=== PATIENT | female | born 1950 | race Caucasian/White ===

== ENCOUNTER 2020-01-22 13:53 | Outpatient (CLI) | payer MEDICARE, SELFPAY ==
--- NOTE | ~2020-01-22 | CT_ITS ---
EXAMINATION: CT chest wo con DATE: 01/22/2020 14:09 INDICATION: Solitary pulmonary nodule TECHNIQUE: Computed tomography (CT) of the chest was performed without intravenous contrast. The dose -length product (DLP) was 121.11 mGy-cm. Automated exposure control and iterative reconstruction tech nique were employed. COMPARISON: None FINDINGS: Scarring is present in the lung apices. There is severe emphysema. A deformity of the right lateral chest wall is noted with associated subpleural scarring. There are a few scattered pulmonary nodules which measure up to 4 mm. No pleural effusion or pneumothorax is identified. No pathological ly enlarged thoracic lymph nodes are identified. The heart size is normal. There is calcified coronar y artery atherosclerosis. IMPRESSION: 1. Severe emphysema. 2. Scattered pulmonary nodules measuring up to 4 mm, likely old granulomatous disease. Consider CT fo llow-up in 12 months. Reviewed, dictated and finalized at location A. IMPRESSION: 1. Severe emphysema. 2. Scattered pulmonary nodules measuring up to 4 mm, likely old granulomatous d isease. Consider CT follow-up in 12 months.
== END 2020-01-22 13:54 ==
PROVIDERS: PCP Physician Assistant; Visit Provider Physician Assistant
DX: R91.1 Solitary pulmonary nodule (principal)
CPT/HCPCS: 71250

== ENCOUNTER 2020-12-27 10:47 | Emergency (ER) | payer MEDICARE, SELFPAY ==
--- NOTE | ~2020-12-27 | XR_ITS ---
EXAMINATION: XR chest 2V DATE: 12/27/2020 12:10 INDICATION: COPD presenting with cough and shortness of breath TECHNIQUE: PA and lateral views of the chest were obtained. COMPARISON: Chest CT dated 01/22/2020 FINDINGS: Hyperexpansion of lungs, flattening of the diaphragm and increased retrosternal clear space consisten t with emphysema better appreciated on prior CT. Biapical pleural-parenchymal scarring. Deformity of lateral right fifth and sixth ribs suggesting old fracture deformity with associated subpleural scarr ing. New focal airspace opacity in the right upper lung zone suspicious for pneumonia. More streaky l inear opacities at the bilateral lung bases which appears unchanged since prior CT likely representin g atelectasis/scarring. The cardiomediastinal silhouette is normal. IMPRESSION: 1. New airspace opacities in the right upper lung zone suspicious for pneumonia. 2. Emphysema with chronic scarring at the bilateral apices, bilateral lung bases and along a likely o ld right rib fracture deformities at the lateral right midlung. Reviewed, dictated and finalized at location A. IMPRESSION: 1. New airspace opacities in the right upper lung zone suspicious for pneumonia . 2. Emphysema with chronic scarring at the bilateral apices, bilateral lung base s and along a likely old right rib fracture deformities at the lateral right mi dlung.
--- NOTE | 2020-12-27 10:52 | ED.URI ---
HPI - URI/Sore Throat General Chief Complaint: Upper Respiratory Infection Stated Complaint: COPD/COUGH Time Seen by Provider: 12/27/20 11:50 Source: patient and RN notes reviewed Mode of arrival: ambulatory Limitations: no limitations History of Present Illness HPI Narrative: 70-year-old female with a history of COPD presents concern for cough, shortness of breath for approximately 3-1/2 weeks. She reports increased fatigue, chills, white frothy sputum. She denies intervention. She continues to smoke 1 pack of cigarettes per day. She has not been vaccinated for Covid. MD elicited complaint: cough Pertinent past history: COPD Related Data Home Medications Medication Instructions Recorded Confirmed B Complex-Vitamin B12 See Rx Instructions .ROUTE .COMPLEX 12/27/20 12/27/20 amlodipine 5 mg PO DAILY 12/27/20 12/27/20 aspirin [Adult Low Dose Aspirin] 81 mg PO DAILY 12/27/20 12/27/20 atorvastatin 40 mg PO DAILY 12/27/20 12/27/20 budesonide-formoterol [Symbicort] 2 puff INHALATION BID 12/27/20 12/27/20 cholecalciferol (vitamin D3) 25 mcg PO DAILY 12/27/20 12/27/20 [Vitamin D3] diclofenac sodium [Pennsaid] 2 pump TOPICAL BID 12/27/20 12/27/20 donepezil 10 mg PO DAILY 12/27/20 12/27/20 dorzolamide-timolol (PF) 1 drp OPHTHALMIC (EYE) BID 12/27/20 12/27/20 hydroxyzine pamoate 25 mg PO TID 12/27/20 12/27/20 latanoprost 1 drp EACH EYE QPM 12/27/20 12/27/20 levothyroxine 88 mcg PO DAILY 12/27/20 12/27/20 losartan 100 mg PO DAILY 12/27/20 12/27/20 melatonin 3 mg PO HS 12/27/20 12/27/20 [id number]-[id number]-Ca carb-vit K 1 tablet PO DAILY 12/27/20 12/27/20 [One-A-Day Womens Formula] nitroglycerin 0.4 mg SUBLINGUAL Q5M PRN 12/27/20 12/27/20 oxybutynin chloride 15 mg PO DAILY 12/27/20 12/27/20 pantoprazole 40 mg PO DAILY 12/27/20 12/27/20 quetiapine 400 mg PO HS 12/27/20 12/27/20 tiotropium bromide [Spiriva with 1 cap INHALATION DAILY 12/27/20 12/27/20 HandiHaler] Allergies Allergy/AdvReac Type Severity Reaction Status Date / Time codeine Allergy Severe HALLUCINATI Verified 12/27/20 11:08 ONS Review of Systems Review of Systems: Narrative: CONSTITUTIONAL: Reports malaise, chills, sweats, fatigue. Denies fever. EYES: Denies visual changes, redness, or discharge. ENT: Denies rhinorrhea, congestion, sinus pain, otalgia and sore throat. CARDIOVASCULAR: Denies chest pain, palpitations, or edema. RESPIRATORY: Reports productive cough, dyspnea. GASTROINTESTINAL: Denies abdominal pain, nausea, vomiting, diarrhea SKIN: Denies rash or itching. MUSCULOSKELETAL: Denies myalgia. NEUROLOGIC: Denies headache. All systems reviewed & are unremarkable except as noted in HPI and below PMFSH Comments At time of signature, agree with nursing past medical, surgical, social and family history. There is no relevant family history pertinent to the presenting complaint Exam Narrative: Exam Narrative: GENERAL: Well-appearing, well-nourished, and in no acute distress. HEAD: Normocephalic EYES: PERRLA, conjunctivae clear ENT: Nares clear. Mucous membranes moist. TM pearly paul with dull light reflex bilaterally; no tragal tenderness. NECK: Supple. No lymphadenopathy CHEST: Bilateral lower lobe coarseness, right upper lobe diminished. No wheezing, rales, or stridor. No respiratory distress, speaks in full sentences. HEART: Regular rate and rhythm. No murmur heard. SKIN: Warm, dry, no rash. NEURO: Alert and oriented x3. PSYCH: Normal mood and affect Course Course Emergency Course: Instructed patient to stop taking women's One-A-Day while taking doxycycline. No safer alternative antibiotic for pneumonia was available due to other interactions with necessary daily medications. Patient is aware of diagnosis, understands and agrees to treatment plan. Anticipatory guidance given. Patient agrees to follow-up as directed and is aware of reasons to seek care at the emergency department. Portions of this record may have been created with voice recognition softw
[2020-12-27 11:12] VITALS: BP 176/85; PULSE 90; RESP 24; TEMP 37.2; O2SAT 89
== END 2020-12-27 12:47 | disposition home or self-care (01) ==
PROVIDERS: Emergency Provider Nurse Practitioner; PCP Physician Assistant
DX: J18.1 Lobar pneumonia, unspecified organism (principal); F17.210 Nicotine dependence, cigarettes, uncomplicated; J44.9 Chronic obstructive pulmonary disease, unspecified; E78.00 Pure hypercholesterolemia, unspecified; I10 Essential (primary) hypertension; G47.30 Sleep apnea, unspecified; E03.9 Hypothyroidism, unspecified; H40.9 Unspecified glaucoma
CPT/HCPCS: 71046; 99213; G0463

== ENCOUNTER 2021-01-17 09:29 | Outpatient (CLI) | payer MEDICARE, SELFPAY ==
--- NOTE | ~2021-01-17 | CT_ITS ---
EXAMINATION:CT diagnostic chest wo con DATE: 01/17/2021 09:44 INDICATION: Solitary pulmonary nodule. TECHNIQUE: Computed tomography (CT) of the chest was performed without intravenous contrast. Automate d exposure control and iterative reconstruction technique were employed. The dose-length product (DLP ) was 36.06 mGy-cm. COMPARISON: Chest CT 01/22/2020, chest 2 views 12/27/2020 FINDINGS: There is moderate emphysema. There are nodules and patchy airspace opacities with cavitatio n involving right upper lobe. There is extensive mucous plugging in bronchus intermedius and right lo wer lobe. There is a 9 mm nodule in right lower lobe, worsened from 5 mm. There are scattered centril obular nodules and mild groundglass opacities in right lower lobe. There is mild scarring at left ivette g apex. There are centrilobular nodules and tree-in-bud opacities in left lower lobe and lingula. No pleural effusion. The heart size is normal. There are coronary artery calcifications. No pericardial effusion. There is mild mediastinal lymphadenopathy. For example, a right paratracheal node measures 13 x 12 mm. Partially visualized is a 13 mm stone in right kidney. There is a small sliding hiatal he rnia. There are old right rib deformities. There is an old right posterolateral diaphragmatic injury with herniation of fat. There is mild thoracic spondylosis. IMPRESSION: 1. Multifocal pneumonia including necrotizing pneumonia in right upper lobe. Noncontrast low-dose char st CT is recommended in one month to exclude malignancy. 2. Moderate emphysema. 3. Mucous plugging involving bronchus intermedius and right lower lobe. 4. Worsened mild mediastinal lymphadenopathy, likely reactive. Reviewed, dictated and finalized at location B. IMPRESSION: 1. Multifocal pneumonia including necrotizing pneumonia in right upper lobe. No ncontrast low-dose chest CT is recommended in one month to exclude malignancy. 2. Moderate emphysema. 3. Mucous plugging involving bronchus intermedius and right lower lobe. 4. Worsened mild mediastinal lymphadenopathy, likely reactive.
== END 2021-01-17 09:30 ==
LOC: MICIMG 09:30
PROVIDERS: PCP Physician Assistant; Visit Provider Physician Assistant
DX: R91.1 Solitary pulmonary nodule (principal); J43.9 Emphysema, unspecified; R91.8 Other nonspecific abnormal finding of lung field
CPT/HCPCS: 71250

== ENCOUNTER 2023-08-15 07:22 | Outpatient (CLI) | payer MEDICARE, MEDICAID, SELFPAY ==
--- NOTE | ~2023-08-15 | PE_ITS ---
EXAMINATION: PET skull to mid thigh DATE: 08/15/2023 09:22 INDICATION: Other nonspecific abnormal finding in lung field. TECHNIQUE: Blood glucose level was 96 mg/dL. 8.866 mCi of 18-fluorodeoxyglucose (18-FDG) was administ ered i.v. Low dose computed tomography (CT) images were acquired from the base of the brain to the pr oximal thighs for attenuation correction and anatomic localization. Automated exposure control was em ployed. Dose-length product (DLP) was 481 mGy-cm. Positron emission tomography (PET) images were acqu ired in the same distribution. COMPARISON: Chest CT 01/17/2021, 01/22/2020 FINDINGS: Head/neck: There is mucosal thickening in the paranasal sinuses. There is thickening and sclerosis of the dal[place] of the maxillary sinuses, consistent with chronic sinusitis. There are no pathologically e nlarged lymph nodes. Right submandibular gland is absent. Chest: There is scarring at the lung apices. There is moderate emphysema. There is 11 mm nodule in ri ght upper lobe with increased activity. There is a 14 mm nodule in right lower lobe with increased ac tivity. There is a 3.3 x 2.3 cm mass in right lower lobe with maximum SUV of 14.6. There is mild atel ectasis bilaterally. There is right hilar lymphadenopathy measuring 3.9 x 2.2 cm with increased activ ity. The heart size is normal. There are coronary artery calcifications. No pericardial effusion. The re is a small sliding hiatal hernia. There is chronic deformity of right fifth and sixth ribs with in dentation of the lung. Abdomen/pelvis/proximal thighs: There are cysts in the liver measuring up to 8 mm. The gallbladder, s pleen, and pancreas are normal. There are masses in the adrenal glands measuring up to 16 mm on the l eft measuring low attenuation, consistent with adenomas. There is mildly increased activity in left a drenal gland with maximum SUV of 2.6. There is a 19 mm stone in right renal pelvis. There is fat stra nding around right renal pelvis, consistent with inflammation. No hydronephrosis. There is an 11 mm s tone in the bladder. There are small parenchymal calcifications in left kidney. There is calcified at herosclerosis of the aorta and many of the other arteries. There are no dilated loops of bowel. The a ppendix is normal. There are no pathologically enlarged lymph nodes. There is no free intraperitoneal fluid. There is a small lytic lesion in the sacrum to the left of midline with increased activity. T here is focal increased activity in left ilium without abnormal CT correlate. IMPRESSION: 1. Right lung mass and nodules with increased activity and right hilar lymphadenopathy with increased activity, consistent with primary bronchogenic carcinoma and metastatic disease. 2. Sacral lytic lesion with increased activity, consistent with metastatic disease. Focal increased a ctivity in left ilium without abnormal CT correlate is suspicious for metastatic disease. 3. Bilateral adrenal adenomas. Mildly increased activity in left adrenal gland is suspicious for meta static disease. 4. Moderate emphysema. Reviewed, dictated and finalized at location A. IMPRESSION: 1. Right lung mass and nodules with increased activity and right hilar lymphade nopathy with increased activity, consistent with primary bronchogenic carcinoma and metastatic disease. 2. Sacral lytic lesion with increased activity, consistent with metastatic dise ase. Focal increased activity in left ilium without abnormal CT correlate is hahn spicious for metastatic disease. 3. Bilateral adrenal adenomas. Mildly increased activity in left adrenal gland is suspicious for metastatic disease. 4. Moderate emphysema.
[2023-08-15 07:50] LABS: Glucose Point of Care 96 mg/dl (65-105)
== END 2023-08-15 07:23 | disposition home or self-care (01) ==
PROVIDERS: PCP Internal Medicine; Visit Provider Nurse Practitioner Family
DX: R91.8 Other nonspecific abnormal finding of lung field (principal); J43.9 Emphysema, unspecified
CPT/HCPCS: 78815; A9552